=== PATIENT | female | born 1970 | race Caucasian/White ===

== ENCOUNTER 2020-07-06 07:53 | Observation (INO) ==
[~2020-07-06 07:53] MED LIST: Buffered Lidocaine 1% SYRIN 1 ml INTRADERM ONE; Lactated Ringers 1000 ml BAG 1,000 ML IV SCH
[2020-07-06] MEDS ORDERED: Clindamycin 900 MG/D5W BAG 900 MG/50 ML BAG IVPB ONE (08:25)
[2020-07-06 09:07] LABS: Hematocrit 34 % (35-47); Hemoglobin 11.8 g/dL (12.0-16.0); Mean Corpuscular HGB Conc 35 g/dL (31-36); Mean Corpuscular Hemoglobin 36 pg (27-31); Mean Corpuscular Volume 103 fL (80-97); Mean Platelet Volume 7.5 fL (7.4-10.4); Platelet Count 248 10^3/uL (150-450); Red Blood Count 3.33 10^6 /uL (3.70-4.87); Red Cell Distribution Width 12 % (10-15); White Blood Count 7.1 10^3/uL (3.5-10.8)
[2020-07-06 09:10] LABS: INR 1.02 (0.82-1.09)
[2020-07-06 09:24] LABS: Calcium 8.6 mg/dL (8.6-10.3); EGFR African American 125.6 (>60); EGFR Non-African American 103.8 (>60); Potassium 3.8 mmol/L (3.5-5.0)
[2020-07-06] MEDS ORDERED: Ketamine HCL 50 mg/ml 10 ml VIAL (500 MG) ONE (09:50)
[2020-07-06] MEDS ORDERED: Midazolam 2 mg/2 ml VIAL 1 mg/ml 2 ml VIAL (2 mg) ONE (09:50)
[2020-07-06] MEDS ORDERED: Morphine PF AMP (0.5MG/ML) 5 MG/10 ML AMP ONE (10:11)
[2020-07-06] MEDS ORDERED: fentaNYL 100 mcg/2 ml 50 MCG/ML VIAL ONE (10:26)
[2020-07-06] MEDS ORDERED: diPHENhydraMINE IV 50 MG/ML 1 ml VIAL (BENADRYL) IV PRN (11:10)
[2020-07-06] MEDS ORDERED: Lactulose 30 ml UDC PO PRN (11:10)
[2020-07-06] MEDS ORDERED: Magnesium Hydroxide LIQ 30 ML UDC PO PRN (11:10)
[2020-07-06] MEDS ORDERED: diPHENhydraMINE 25 mg TAB PO PRN (11:10)
[2020-07-06] MEDS ORDERED: Phenylephrine IV 10 MG/ML 1 ml VIAL ONE (11:11)
[2020-07-06] MEDS ORDERED: IMITREX PO PRN (11:24)
[2020-07-06] MEDS ORDERED: OXYGEN AIR DELIVERY SYSTEMS DEVICE MISCELLANEOUS PRN (11:24)
[2020-07-06] MEDS ORDERED: Insulin Detemir (NF) 100 UNIT/ML 10 ML VIAL SUBCUT PRN (11:24)
[2020-07-06] MEDS ORDERED: Propofol 10 MG/ML 20 ML BTL ONE (11:45)
[2020-07-06] MEDS ORDERED: Dexamethasone IV 4 MG/ML VIAL 1 ml VIAL ONE (12:10)
[2020-07-06] MEDS ORDERED: ROPIVACAINE 5 MG/ML 30 ML BTL (0.5%) ONE (12:10)
[2020-07-06] MEDS ORDERED: Ondansetron 4 mg VIAL 2 MG/ML 2 ml VIAL ONE (13:29)
[2020-07-06] MEDS: Ondansetron 4 mg VIAL 2 MG/ML 2 ml VIAL IV PRN ×2 (13:33→21:41)
[2020-07-06] MEDS ORDERED: Dextrose 50% Syringe 50 ml 25 GM/50 ML SYRINGE IV PUSH PRN (14:09)
[2020-07-06] MEDS ORDERED: Albuterol HFA INHALER 8 gm MDI INH PRN (14:44)
[2020-07-06] MEDS: Lactated Ringers 1000 ml BAG 1,000 ML IV SCH (15:09)
[2020-07-06] MEDS ORDERED: Insulin GLARGINE 100 un/ml 10 ml VIAL SUBCUT PRN (15:46)
[2020-07-06] MEDS: Ondansetron ODT 4 mg TAB 4 MG TAB PO PRN (17:22)
[2020-07-06] MEDS: Clindamycin 600 MG/D5W BAG 600 MG/50 ML BAG IV SCH (17:22)
[2020-07-06] MEDS ORDERED: Albuterol/Ipratropium RESP(NF) MDI (Combivent Respimat) INH PRN (19:01)
[2020-07-06] MEDS: CMCS:Ranolazine 500 mg TAB (NF) PO SCH (21:38)
[2020-07-06] MEDS: Potassium Chlor 10 meq TAB PO SCH (21:38)
[2020-07-06] MEDS: Morphine 2 MG/ML SYRINGE IV PRN (21:41)
[2020-07-06] MEDS: Magnesium Hydroxide LIQ 30 ML UDC PO SCH (21:53)
[2020-07-07] MEDS: Lactated Ringers 1000 ml BAG 1,000 ML IV SCH (01:29)
[2020-07-07] MEDS: Clindamycin 600 MG/D5W BAG 600 MG/50 ML BAG IV SCH ×2 (01:33→09:39)
[2020-07-07] MEDS: Morphine 2 MG/ML SYRINGE IV PRN (02:49)
[2020-07-07 05:45] LABS: Hematocrit 31 % (35-47); Hemoglobin 9.9 g/dL (12.0-16.0); Mean Platelet Volume 7.5 fL (7.4-10.4); Platelet Count 229 10^3/uL (150-450)
[2020-07-07 06:10] LABS: Calcium 8.1 mg/dL (8.6-10.3); EGFR Non-African American 130.6 (>60); Potassium 4.4 mmol/L (3.5-5.0)
[2020-07-07] MEDS: Ondansetron ODT 4 mg TAB 4 MG TAB PO PRN (07:32)
[2020-07-07] MEDS ORDERED: NON FORMULARY MED (Multivitamin Tablet) PO SCH (09:00)
[2020-07-07] MEDS: Magnesium Hydroxide LIQ 30 ML UDC PO SCH ×2 (09:33→19:57)
[2020-07-07] MEDS: Conjugated Estrogens 0.3mg TAB PO SCH (09:33)
[2020-07-07] MEDS: Potassium Chlor 10 meq TAB PO SCH ×3 (09:39→20:18)
[2020-07-07] MEDS: Vitamin THERAPEUTIC TAB PO SCH (09:39)
[2020-07-07] MEDS: CMCS:Ranolazine 500 mg TAB (NF) PO SCH ×2 (09:39→19:59)
[2020-07-07] MEDS: Enoxaparin 30 MG/0.3 ML SYR SUBCUT SCH (11:33)
[2020-07-08 05:28] LABS: Hematocrit 30 % (35-47); Hemoglobin 10.5 g/dL (12.0-16.0); Mean Platelet Volume 7.5 fL (7.4-10.4); Platelet Count 222 10^3/uL (150-450)
[2020-07-08] MEDS: Ondansetron 4 mg VIAL 2 MG/ML 2 ml VIAL IV PRN (09:08)
[2020-07-08] MEDS: Vitamin THERAPEUTIC TAB PO SCH (09:14)
[2020-07-08] MEDS: Magnesium Hydroxide LIQ 30 ML UDC PO SCH (09:14)
[2020-07-08] MEDS: Conjugated Estrogens 0.3mg TAB PO SCH (09:14)
[2020-07-08] MEDS: CMCS:Ranolazine 500 mg TAB (NF) PO SCH (09:14)
[2020-07-08 11:03] VITALS: BP 92/49
[2020-07-08] MEDS: Potassium Chlor 10 meq TAB PO SCH (13:19)
[2020-07-08] MEDS: Enoxaparin 30 MG/0.3 ML SYR SUBCUT SCH (13:20)
[2020-07-08] MEDS ORDERED: NS 0.9% 1000 ml BAG 1,000 ML IV SCH (15:00)
== END 2020-07-08 17:35 | disposition home or self-care (01) ==
LOC: OR 07:53 → SSU 07:53 → EDUNIT# 08:45
PROVIDERS: ADMIT Orthopaedic Surgery Sports Medicine; ATTEND Orthopaedic Surgery Sports Medicine